=== PATIENT | male | born 1980 | race Caucasian/White ===

== ENCOUNTER 2023-10-31 08:06 | Outpatient (CLI) | payer BC ==
[2023-10-31] MEDS ORDERED: Iopamidol 370 76% 100 ML VIAL ONE (10:37)
== END 2023-10-31 08:07 | disposition home or self-care (01) ==
LOC: BICCT 08:06
PROVIDERS: ATTEND Internal Medicine Gastroenterology
DX: K85.10 Biliary acute pancreatitis without necrosis or infection (principal); K76.89 Other specified diseases of liver; D73.89 Other diseases of spleen
CPT/HCPCS: 74170

== ENCOUNTER 2023-11-23 08:41 | Outpatient (CLI) | payer BC | END 2023-11-23 08:42 | disposition home or self-care (01) | LOC: BICRAD 08:41 | PROVIDERS: ATTEND Internal Medicine Gastroenterology | DX: K85.10 Biliary acute pancreatitis without necrosis or infection (principal); R10.13 Epigastric pain; K86.89 Other specified diseases of pancreas; M25.512 Pain in left shoulder | CPT/HCPCS: 71046 ==

== ENCOUNTER 2023-11-28 06:07 | Day surgery (SDC) | payer BC ==
[2023-11-27 09:29] VITALS: BMI 37.8
[2023-11-28] MEDS ORDERED: Midazolam HCl 2 mg/2 ml Vial ONE (07:42)
[2023-11-28] MEDS ORDERED: fentaNYL 50 mcg/mL 1 mL Vial ONE (07:42)
[2023-11-28] MEDS ORDERED: PROPOFOL 20 ML ONE (07:42)
== END 2023-11-28 09:00 | disposition home or self-care (01) ==
LOC: SDC 06:07
PROVIDERS: ATTEND Internal Medicine Gastroenterology
PROC: 0DJ08ZZ Inspection of Upper Intestinal Tract, Via Natural or Artificial Opening Endoscopic (ICD-10-PCS; principal; 2023-11-28)
DX: K85.10 Biliary acute pancreatitis without necrosis or infection (principal); K86.89 Other specified diseases of pancreas; M25.512 Pain in left shoulder; I82.890 Acute embolism and thrombosis of other specified veins; Z90.49 Acquired absence of other specified parts of digestive tract; Z98.890 Other specified postprocedural states; Z79.899 Other long term (current) drug therapy
CPT/HCPCS: J2250; J2704; J3010

== ENCOUNTER 2024-02-09 07:34 | Outpatient (CLI) | payer BC ==
[2024-02-09] MEDS ORDERED: Iopamidol 370 76% 100 ML VIAL ONE (08:45)
== END 2024-02-09 07:35 | disposition home or self-care (01) ==
LOC: BICCT 07:34
PROVIDERS: ATTEND Internal Medicine Gastroenterology
DX: K86.89 Other specified diseases of pancreas (principal); R10.13 Epigastric pain; M25.512 Pain in left shoulder; K85.10 Biliary acute pancreatitis without necrosis or infection; I82.890 Acute embolism and thrombosis of other specified veins
CPT/HCPCS: 74177; Q9967

== ENCOUNTER 2024-09-06 08:16 | Outpatient (CLI) | payer BC ==
[2024-09-06] MEDS ORDERED: Iopamidol 370 76% 100 ML VIAL ONE (11:29)
== END 2024-09-06 08:17 | disposition home or self-care (01) ==
LOC: CT 08:16
PROVIDERS: ATTEND Internal Medicine Gastroenterology
DX: I82.890 Acute embolism and thrombosis of other specified veins (principal); R10.13 Epigastric pain; M25.512 Pain in left shoulder; K85.12 Biliary acute pancreatitis with infected necrosis; J90 Pleural effusion, not elsewhere classified; R19.5 Other fecal abnormalities
CPT/HCPCS: 74178; Q9967